=== PATIENT | female | born 1980 | race Caucasian/White ===

== ENCOUNTER 2017-08-14 12:32 | Emergency (ER) | payer SELFPAY ==
[~2017-08-14] VITALS: Ht 157.5 cm; Wt 77.3 kg
[2017-08-14 12:34] VITALS: BP 143/83; PULSE 106; RESP 18; TEMP 98.3; O2SAT 100
[2017-08-14] MEDS ORDERED: MELO15TA20 PO (13:51)
[2017-08-14] MEDS ORDERED: ROBA500T PO (13:51)
--- NOTE | 2017-08-14 13:52 | PD ---
HPI Chief Complaint: Back/ Neck Pain or Injury Time Seen by Provider: 13:20 Travel History International Travel<30 days: No Contact w/Intl Traveler<30days: No Traveled to known affect area: No History of Present Illness HPI This is a 36-year-old female here with low back pain and muscle spasms 2 days. She reports she has had similar symptoms in the past. She reports she was doing heavy lifting and bending over the weekend which she believes caused the pain. Symptoms are worse with movement and relieved with rest. She denies fever, incontinence, dysuria, abdominal pain, paresthesia or weakness in the extremities. Symptom severity is moderate. PFSH Past Medical History Medical History: Denies Significant Hx ?: Not LMP: 07/25/2017 Social History Tobacco Use: No Review of Systems Except as stated in HPI: all other systems reviewed are Neg General / Constitutional: No: Fever Eyes: No: Visual changes HENT: No: Headaches Cardiovascular: No: Chest Pain or Discomfort Respiratory: No: Shortness of Breath Gastrointestinal: No: Abdominal Pain Genitourinary: No: Dysuria Physical Exam Narrative GENERAL: Alert well-appearing 36-year-old female SKIN: Warm and dry. HEAD: Normocephalic. EYES: No injection or drainage. NECK: Supple, trachea midline. CARDIOVASCULAR: Regular rate and rhythm RESPIRATORY: Breath sounds equal bilaterally. No accessory muscle use. GASTROINTESTINAL: Abdomen soft, non-tender, nondistended. MUSCULOSKELETAL: No cyanosis, or edema. 5 out of 5 strength in lower extremities. Normal sensation. 2+ patellar and Achilles DTRs. BACK: Tenderness to the lumbar paraspinous muscles. No midline spine tenderness. Without obvious deformity. No CVA tenderness. Data Data Last Documented VS Vital Signs Date Time Temp Pulse Resp B/P (MAP) Pulse Ox O2 Delivery O2 Flow Rate FiO2 08/14/17 12:34 98.3 106 18 143/83 (103) 100 MDM Medical Decision Making Medical Screen Exam Complete: Yes Emergency Medical Condition: Yes Differential Diagnosis Lumbar strain/sprain, herniated disc, unlikely lumbar spine fracture Narrative Course 36-year-old female with low back pain and muscle spasms for several days. She has a normal neurologic exam. No midline spine tenderness. No urinary symptoms. Patient be treated for lumbar strain Diagnosis Primary Impression: Lumbar strain Qualified Codes: S39.012A - Strain of muscle, fascia and tendon of lower back , initial encounter Referrals: Primary Care Physician Additional Instructions: Avoid heavy lifting or strenuous activity. Meloxicam for pain. Robaxin as needed for muscle spasm Ice or heat for comfort. Scripts Methocarbamol (Robaxin) 500 Mg Tab 500 MG PO QID for Muscle Spasm, #14 TAB 0 Refills Prov: Marlene Mack 08/14/17 Meloxicam (Meloxicam) 15 Mg Tab 15 MG PO DAILY for Arthritis Pain, #30 TAB 0 Refills Prov: Marlene Mack 08/14/17 Disposition: 01 DISCHARGE HOME Condition: Stable Marlene Mack Aug 14, 2017 13:52
[2017-08-14] MEDS ORDERED: KETOROLAC TROMETHAMINE 60 MG/2 ML (IM) VIAL IM ONE (14:00)
[2017-08-14] MEDS ORDERED: ORPHENADRINE INJ 60 MG/2 ML AMP IM ONE (14:00)
== END 2017-08-14 14:13 | disposition home or self-care (01) ==
LOC: NEPK 12:32
DX: M54.5 Low back pain (principal); S39.012A Strain of muscle, fascia and tendon of lower back, initial encounter; X50.0XXA Overexertion from strenuous movement or load, initial encounter
CPT/HCPCS: 96372; 99284; J1885; J2360